=== PATIENT | female | born 1980 | race Caucasian/White ===

== ENCOUNTER → 2019-07-02 | Outpatient (CLI) | payer BC | END | disposition home or self-care (01) | LOC: LAB EV 08:27 → LAB SHORT 08:27 | DX: N39.0 Urinary tract infection, site not specified (principal) | CPT/HCPCS: 87086 ==

== ENCOUNTER → 2021-08-19 | Outpatient (CLI) | payer BC ==
[~2021-08-19] MED LIST: ASCO500 PO; EUTHYROX88 MC1 PO; Hair, Skin & N1 EACH PO; LOSARTAN POTASS25 M2 PO; OMEGA-3 FLAXS1000 MG PO; SYNTHROID88 MCG PO; Venlafaxine HCl75 MG PO; Vitamin D2000 UNIT PO
[2021-08-20 12:22] LABS: Candida species (DNA Probe) Negative (NEGATIVE); G. vaginalis (DNA Probe) Negative (NEGATIVE); T. vaginalis (DNA Probe) Negative (NEGATIVE)
== END | disposition home or self-care (01) ==
LOC: LAB SHORT 15:23
PROVIDERS: Advanced Practice Midwife
DX: N76.0 Acute vaginitis (principal)
CPT/HCPCS: 87480; 87510; 87660